=== PATIENT | female | born 1970 | race Caucasian/White ===

== ENCOUNTER 2016-10-22 09:42 | Emergency (ER) | payer BC ==
[2016-10-22 10:14] VITALS: BP 179/100
--- NOTE | 2016-10-22 10:25 | UC ---
Throat Pain/Nasal Jason HPI - HPI Summary HPI Summary: 46 yo female with sore throat x 7 days Headache and myalgias as well as fever and chills were prominent the first few days of the illness no n/v/d no cough or SOB eating and drinking well - History of Current Complaint Chief Complaint: UCGeneralIllness Stated Complaint: SORE THROAT Time Seen by Provider: 10/22/16 10:14 Hx Obtained From: Patient Onset/Duration: Gradual Onset, Lasting Weeks - 1 Severity: Mild Pain Intensity: 4 Pain Scale Used: 0-10 Numeric Cough: None Associated Signs & Symptoms: Positive: Fever - Epiglottits Risk Factors Epiglottis Risk Factors: Negative - Allergies/Home Medications Allergies/Adverse Reactions: Allergies Allergy/AdvReac Type Severity Reaction Status Date / Time Sulfa Antibiotics Allergy Hives Verified 01/04/14 10:15 Home Medications: Home Medications Multiple Vitamin [Multivitamins] 10/22/16 [History] PMH/Surg Hx/FS Hx/Imm Hx Previously Healthy: Yes Cardiovascular History Of: Comment Only: Cardiac Disorders - borderline cholesterol, Hypertension - borderline high BP - Surgical History Surgical History: Yes Surgery Procedure, Year, and Place: hysterectomy - 2008. knee surgery - 2008. BL carpel tunnel surgery - 2008 - Family History Known Family History: Positive: Hypertension - Social History Alcohol Use: Daily Substance Use Type: None Smoking Status (MU): Light Every Day Tobacco Smoker - Immunization History Most Recent Influenza Vaccination: 2016 Review of Systems Constitutional: Fever, Chills Skin: Negative Eyes: Negative ENT: Sore Throat, Nasal Discharge Respiratory: Negative Cardiovascular: Negative Gastrointestinal: Negative Genitourinary: Negative Motor: Negative Neurovascular: Negative Musculoskeletal: Myalgia Neurological: Negative Psychological: Negative All Other Systems Reviewed And Are Negative: Yes Physical Exam Triage Information Reviewed: Yes Appearance: Well-Appearing, No Pain Distress, Well-Nourished Vital Signs: Initial Vital Signs Temp 98.0 F 10/22/16 10:05 Pulse 73 10/22/16 10:05 Resp 18 10/22/16 10:05 BP 179/100 10/22/16 10:05 Pulse Ox 97 10/22/16 10:05 Vital Signs Reviewed: Yes Eyes: Positive: Conjunctiva Clear ENT: Positive: Hearing grossly normal, Pharyngeal erythema, Nasal congestion, TMs normal, Tonsillar swelling. Negative: Tonsillar exudate, Trismus Neck: Positive: Supple, Nontender, Enlarged Nodes @ - ant cervi Respiratory: Positive: Lungs clear, Normal breath sounds, No respiratory distress, No accessory muscle use Cardiovascular: Positive: RRR, No Murmur Musculoskeletal Exam: Normal Musculoskeletal: Positive: Strength Intact, ROM Intact Neurological: Positive: Alert Psychological Exam: Normal Skin Exam: Normal Throat Pain/Nasal Course/Dx - Differential Dx/Diagnosis Provider Diagnoses: acute pharyngitis Discharge - Discharge Plan Condition: Stable Disposition: HOME Prescriptions: Amoxicillin (*) 875 mg PO BID #20 tab Patient Education Materials: Pharyngitis (ED) Referrals: Ok Villareal MD [Primary Care Provider] - 4 Days (if not bettter) Additional Instructions: tylenol or advil for pain recheck for worsening symptoms
== END 2016-10-22 10:25 | disposition home or self-care (01) ==
LOC: UCEAST 09:42
DX: J02.9 Acute pharyngitis, unspecified (principal); R50.9 Fever, unspecified; R05 Cough; M79.1 Myalgia; Z88.2 Allergy status to sulfonamides; F17.210 Nicotine dependence, cigarettes, uncomplicated
CPT/HCPCS: 99212; G0463

== ENCOUNTER 2019-01-07 14:24 | Emergency (ER) | payer BC, OTHER ==
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
[2019-01-07 17:33] VITALS: BP 157/112
== END 2019-01-07 17:31 | disposition home or self-care (01) ==
LOC: ED 14:24
DX: S20.219A Contusion of unspecified front wall of thorax, initial encounter (principal); S80.01XA Contusion of right knee, initial encounter; S80.211A Abrasion, right knee, initial encounter; M79.642 Pain in left hand; V43.62XA Car passenger injured in collision with other type car in traffic accident, initial encounter; Y92.410 Unspecified street and highway as the place of occurrence of the external cause; M17.11 Unilateral primary osteoarthritis, right knee; Z88.2 Allergy status to sulfonamides; F17.200 Nicotine dependence, unspecified, uncomplicated
CPT/HCPCS: 71046; 99282

== ENCOUNTER 2019-01-09 10:40 | Emergency (ER) | payer OTHER ==
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
[2019-01-09 11:09] VITALS: BP 140/81
== END 2019-01-09 11:09 | disposition home or self-care (01) ==
LOC: ED 10:40
DX: S00.03XA Contusion of scalp, initial encounter (principal); S09.90XA Unspecified injury of head, initial encounter; R03.0 Elevated blood-pressure reading, without diagnosis of hypertension; R51 Headache; F17.210 Nicotine dependence, cigarettes, uncomplicated; R07.89 Other chest pain; V49.9XXA Car occupant (driver) (passenger) injured in unspecified traffic accident, initial encounter; Y92.9 Unspecified place or not applicable; Z88.2 Allergy status to sulfonamides
CPT/HCPCS: 99281